=== PATIENT | female | born 1975 | race American Indian/Alaskan Native ===

== ENCOUNTER 2019-06-27 09:29 | Day surgery (SDC) | payer OTHER ==
--- NOTE | 2019-06-26 16:27 | History and Physical Report ---
History of Present Illness Date of examination: 06/26/19 Chief complaint: bleeding, polyp History of present illness: Pt is a 43 year old -[place] female who presents for surgical evaluation of postpmenopausal bleeding and fragments of benign endometrial polyp on in-office biopsy on 05/17/19. Past History Past Medical History: no pertinent history Past Surgical History: no surgical history [employer] History: herpes Family/Genetic History: hypertension, cancer Social history: no significant social history - Obstetrical History : 4 Para: 3 Hx # Term Pregnancies: 3 Number of Pregnancies: 0 Spontaneous Abortions: 1 Induced : 0 Number of Living Children: 3 Review of Systems All systems: negative - Physical Exam Breasts: Positive: deferred Cardiovascular: Regular rate Lungs: Positive: Clear to auscultation Abdomen: Positive: soft Extremities: Positive: normal Results All other labs normal. Assessment and Plan A: Postmenopausal Bleeding Endometrial Polyp Obesity P: Proceed with Hysteroscopy, Myosure endometrial sampling, Possible polypectomy and other indicated procedures.
[~2019-06-27 09:29] MED LIST: ANCEF/STERILE WATER 2 GM/20 ML 2 GM/20 ML SYRINGE IV NR; LACTATED RINGERS 1,000 ML IV SCH
[2019-06-27 10:34] LABS: Hematocrit 37.9 % (30.3-42.9); Mean Corpuscular HGB Conc 34 % (30-34); Mean Corpuscular Volume 94 fl (79-97); Platelet Count 391 K/mm3 (140-440); Red Blood Count 4.04 M/mm3 (3.65-5.03); Red Cell Distribution Width 12.1 % (13.2-15.2)
--- NOTE | 2019-06-27 10:38 | Anesthesia Consultation ---
Anesthesia Consult and Med Hx Date of service: 06/27/19 - Airway Anesthetic Teeth Evaluation: Good ROM Head & Neck: Adequate Mental/Hyoid Distance: Adequate Mallampati Class: Class II Intubation Access Assessment: Good - Pulmonary Exam CTA: Yes - Cardiac Exam Cardiac Exam: RRR - Pre-Operative Health Status ASA Pre-Surgery Classification: ASA1 Proposed Anesthetic Plan: General - Pulmonary Hx Asthma: Yes (As a child) - Central Nervous System Hx Psychiatric Problems: No - Other Systems Hx Alcohol Use: Yes (Occas) Hx Cancer: No
--- NOTE | 2019-06-27 10:38 | Anesthesia Day of Surgery ---
Anesthesia Day of Surgery - Day of Surgery Patient Examined: Yes Patient H&P Reviewed: Yes Patient is NPO: Yes
[2019-06-27] MEDS ORDERED: VERSED IV NR (11:00)
[2019-06-27] MEDS ORDERED: KETAMINE 50 MG/ML-WATER SYRING ONE (11:14)
[2019-06-27] MEDS ORDERED: XYLOCAINE MPF 2% ONE (11:14)
[2019-06-27] MEDS ORDERED: DIPRIVAN 10 MG/ML IV ONE (11:14)
[2019-06-27] MEDS ORDERED: SUBLIMAZE ONE (11:14)
[2019-06-27] MEDS ORDERED: ZOFRAN ONE (11:36)
[2019-06-27] MEDS ORDERED: TORADOL ONE (11:36)
[2019-06-27] MEDS ORDERED: DECADRON ONE (11:36)
[2019-06-27] MEDS ORDERED: SILVER NITRATE TP ONE ×3 (11:50→12:41)
--- NOTE | 2019-06-27 12:19 | Operative Report ---
Operative Report Operative Report: Date of procedure: June 27, 2019 Preoperative diagnosis: 1)Postmenopausal Bleeding 2)Endometrial Polyp Postoperative diagnosis: Same Procedure: 1)Hysteroscopy 2)Myosure Endometrial Polypectomy Surgeon: Blanca Beard M.D. Findings: 1) Small anteverted mobile uterus that sounded to 8 cm 2) Two endometrial polyps visualized on hysteroscopy, one elongated polyp filling 50 percent of the endometrial cavity, and a smaller sessile polyp on the posterior endometrial surface Anesthesia: General with LMA Estimated blood loss: 10 mL Specimens: endometrial polyps to pathology Deficit: 10 mL Drains: None Complications: None Disposition: Stable to PACU Indications for procedure: Pt is a 43 year old -[place] female who presents for surgical evaluation of postpmenopausal bleeding and fragments of benign endometrial polyp on in-office biopsy on 05/17/19. Operation in detail: After the risks, benefits, alternatives and complications of the procedure were explained to the patient, she gave informed consent for the procedure. She was subsequently taken to the operating room and placed in the dorsal supine position with her IV noted to be running well. SCDs noted to be in place and functioning. General anesthesia was then induced without difficulty. The patient was in placed in dorsal lithotomy position and prepped and draped in normal sterile fashion. A timeout was performed. An exam under anesthesia was performed yielding a mobile anteverted uterus. The bladder was then catheterized yielding clear urine. An open sided speculum was then placed into the vagina for adequate visualization of the cervix. The anterior lip of the cervix was then grasped with a tenaculum for traction. The uterus sounded to 8 cm. The cervix was then dilated to a #19 with Ferguson dilators. At this time, a hysteroscope was introduced to visualize the endometrial cavity which revealed two endometrial polyps, one elongated taking up the majority of the endometrial cavitiy and another sessile polyp on the posterior aspect of the endometrial cavity. The Myosure device was used to excise the polyps and the fragments were sent to pathology. All instruments were removed from the uterus atraumatically. At this time, the single-tooth tenaculum was removed from the cervix. Silver nitrate was placed over the tenaculum puncture sites for hemostasis. All instruments were removed from the vagina atraumatically and the procedure was ended. The patient was placed into the dorsal supine position and extubated without difficulty. She was subsequently taken to the PACU in stable condition. She tolerated the procedure well. All counts were correct 2.
[2019-06-27] MEDS ORDERED: DEMEROL ONE (12:24)
[2019-06-27] MEDS ORDERED: DEMEROL IV PRN (12:29)
--- NOTE | 2019-06-27 12:29 | Short Stay Summary ---
Short Stay Documentation Date of service: 06/27/19 - History Social history: no significant social history - Allergies and Medications Current Medications: Allergies Iodine and Iodide Containing Produc Allergy (Verified 06/26/19 17:38) Unknown seafood Allergy (Uncoded 06/26/19 17:38) Anaphylaxis Home Medications Medication Instructions Recorded Confirmed Last Taken Type No Known Home Medications [No 06/26/19 06/26/19 Unknown History Reported Home Medications] Active Medications Lactated Ringer's (Lactated Ringers) 1,000 mls @ 100 mls/hr IV DIRECT LUIS CARLOS Last Admin: 06/27/19 10:15 Dose: 100 mls/hr Documented by: Cefazolin Sodium (Ancef/Sterile Water 2 Gm/20 Ml) 2 gm in 20 mls @ 80 mls/hr IV PREOP NR; Protocol Stop: 07/07/19 23:59 Midazolam HCl (Versed) 2 mg IV PREOP NR Stop: 06/27/19 23:59 Last Admin: 06/27/19 11:09 Dose: 2 mg Documented by: - Physical exam Breasts: deferred - Brief post op/procedure progress note Date of procedure: 06/27/19 Pre-op diagnosis: Postmenopausal Bleeding, Endometrial Polyp Post-op diagnosis: same Procedure: Hysteroscopy, Myosure endometrial polypectomy Anesthesia: GETA Findings: 1) Small anteverted mobile uterus that sounded to 8 cm 2) Two endometrial polyps visualized on hysteroscopy, one elongated polyp filling 50 percent of the endometrial cavity, and a smaller sessile polyp on the posterior endometrial surface Surgeon: MARCIO BEARD Estimated blood loss: minimal Pathology: list (endometrial polyps) Specimen disposition: to lab Condition: stable - Hospital course Hospital course: Pt underwent hysteroscopy, Myosure endometrial polypectomy which she tolerated well. She was observed in the PACU until she met discharge criteria. She will follow up in 1 week in the office with Dr Beard. - Disposition Condition at discharge: Stable Disposition: - TO HOME OR SELFCARE - Discharge Diagnoses (1) Postmenopausal bleeding Status: Acute (2) Endometrial polyp Status: Acute (3) Obesity Status: Acute Qualifiers: Obesity type: unspecified obesity type Obesity classification: adult class 2 (BMI 35 - 39.9) Serious obesity comorbidity presence: unspecified whether serious comorbidity present Body mass index: BMI 36.0-36.9 Qualified Code(s): E66.9 - Obesity, unspecified; Z68.36 - Body mass index (BMI) 36.0-36.9, adult Short Stay Discharge Plan Activity: other (Nothing in vagina, no tub baths, no swimming for 4 weeks) Weight Bearing Status: Full Weight Bearing Diet: regular Follow up with: PRIMARY CAREMD [Primary Care Provider] - 7 Days MARCIO BEARD MD [Staff Physician] - 7 Days (Please call to schedule a postop appt ) Prescriptions: Ibuprofen [Motrin] 800 mg PO Q8HR PRN #30 tablet PRN Reason: Pain, Moderate (4-6) oxyCODONE /ACETAMINOPHEN [Percocet 5/325] 1 tab PO Q6HR PRN #20 tablet PRN Reason: Pain
[2019-06-27 13:23] VITALS: BP 107/65
--- NOTE | 2019-06-27 15:28 | Post Anesthesia Evaluation ---
- Post Anesthesia Evaluation Patient Participated: Yes Airway Patent: Yes Stable Respiratory Function: Yes Nausea/Vomiting: No Temp > 96.8F: Yes Pain Manageable: Yes Adequeate Hydration: Yes Anesthesia Complications: No
== END 2019-06-27 14:00 | disposition home or self-care (01) ==
LOC: OR 09:29
PROVIDERS: ATTEND Obstetrics & Gynecology
DX: N84.0 Polyp of corpus uteri (principal); N95.0 Postmenopausal bleeding; E66.9 Obesity, unspecified; J45.909 Unspecified asthma, uncomplicated; Z72.89 Other problems related to lifestyle; Z91.013 Allergy to seafood; Z91.040 Latex allergy status; Z79.899 Other long term (current) drug therapy; Z68.36 Body mass index [BMI] 36.0-36.9, adult
CPT/HCPCS: 36415; 58558; 81025; 84132; 84295; 85027; 88305; C1782; J0690; J1100; J1885; J2175; J2250; J2405; J2704; J3010; J7120